=== PATIENT | female | born 1970 | race Caucasian/White ===

== ENCOUNTER → 2018-09-27 | Outpatient (CLI) | payer OTHER | END | disposition home or self-care (01) | LOC: LAB 20:57 | PROVIDERS: ATTEND Nurse Practitioner Adult Health | DX: N10 Acute pyelonephritis (principal) | CPT/HCPCS: 87077; 87086; 87186 ==

== ENCOUNTER → 2018-10-05 | Outpatient (CLI) | payer OTHER | END | disposition home or self-care (01) | LOC: NPLAB 16:07 | PROVIDERS: ATTEND Nurse Practitioner Adult Health | DX: N10 Acute pyelonephritis (principal) | CPT/HCPCS: 87086 ==